=== PATIENT | male | born 1950 | race Asian ===

== ENCOUNTER 2017-09-30 11:49 | Emergency (ER) | payer OTHER, BC ==
[~2017-09-30] VITALS: Ht 162.6 cm; Wt 63.5 kg
[2017-09-30 11:59] VITALS: Ht 162.6 cm; Wt 63.5 kg
[2017-09-30 12:37] LABS: BASOPHIL % 0.2 % (0-2); CALCIUM 9.1 mg/dL (8.5-10.1); CHLORIDE SERUM 102 mmol/L (98-107); CREATININE SERUM 0.9 mg/dL (0.7-1.3); GFR1 > 60 mL/min; GLUCOSE SERUM 195 mg/dL (74-106); PLATELET COUNT 260 x10^3mcL (130-400); POTASSIUM SERUM 3.9 mmol/L (3.5-5.1); RED CELL DISTRIBUTION WIDTH 13.5 % (11.5-14.5); SODIUM SERUM 140 mmol/L (136-145)
[2017-09-30 12:42] LABS: ALBUMIN 4.2 g/dL (3.4-5.0); ALKALINE PHOSPHATASE 65 U/L (46-116); ALT/SGPT 37 U/L (16-63); AST/SGOT 25 U/L (15-37); BILIRUBIN TOTAL 0.8 mg/dL (0.20-1.00)
[2017-09-30 14:28] VITALS: BP 120/76
== END 2017-09-30 14:28 | disposition home or self-care (01) ==
LOC: ED 11:49
PROVIDERS: Emergency Medicine
DX: R55 Syncope and collapse (principal); R42 Dizziness and giddiness; R51 Headache; E11.9 Type 2 diabetes mellitus without complications
CPT/HCPCS: 83880; J7030; J8597; Q0092